=== PATIENT | male | born 1970 | race Caucasian/White ===

== ENCOUNTER 2019-05-11 18:07 | Emergency (ER) | payer BC, OTHER ==
[2019-05-11 18:18] VITALS: BP 151/100
[2019-05-11] MEDS ORDERED: Acetaminophen TAB* 325 MG PO ONE (18:38)
--- NOTE | 2019-05-11 18:41 | ED ---
Upper Extremity Pain - HPI Summary HPI Summary: 48 yr old male with right shoulder pain. Onset 4 hours ago. He broke his fall with his hands close to his sides. He has pain in the anterior and lateral shoulder, and limited movement in overhead direction now. No fever, swelling. No other complaints. The patient was out hiking and broke his fall during the hike. He also has right shoulder surgery back in the mid 1980s - History of Current Complaint Chief Complaint: UCUpperExtremity Stated Complaint: RIGHT SHOULDER INJURY Time Seen by Provider: 05/11/19 18:14 - Allergies/Home Medications Allergies/Adverse Reactions: Allergies Allergy/AdvReac Type Severity Reaction Status Date / Time No Known Allergies Allergy Verified 05/11/19 18:18 Home Medications: Home Medications Acetaminophen [Tylenol Extra Strength] 1,000 mg PO DAILY 05/11/19 [History Confirmed 05/11/19] Ibuprofen TAB* [Motrin TAB* 800 MG] 800 mg PO ONCE 05/11/19 [History Confirmed 05/11/19] Rivaroxaban TAB(*) [Xarelto 10 mg (*)] 10 mg PO DAILY 05/11/19 [History Confirmed 05/11/19] Sildenafil Citrate [Viagra] 100 mg PO DAILY 05/11/19 [History Confirmed 05/11/19 ] PMH/Surg Hx/FS Hx/Imm Hx - Surgical History Surgery Procedure, Year, and Place: right shoulder separation w/ pins; left knee arthroscopy Infectious Disease History: No Infectious Disease History: Denies: History Other Infectious Disease, Traveled Outside the [place] in Last 30 Days - Family History Known Family History: Positive: None - Social History Occupation: Employed Full-time Alcohol Use: Weekly Substance Use Type: Reports: None Smoking Status (MU): Never Smoked Tobacco Review of Systems Constitutional: Negative Positive: Other - shoulder pain All Other Systems Reviewed And Are Negative: Yes Physical Exam Triage Information Reviewed: Yes Vital Signs On Initial Exam: Initial Vitals Temp Pulse Resp BP Pulse Ox 100.1 F 105 12 151/100 98 05/11/19 18:15 05/11/19 18:15 05/11/19 18:15 05/11/19 18:15 05/11/19 18:15 Vital Signs Reviewed: Yes Appearance: Positive: Well-Appearing, No Pain Distress Skin: Positive: Warm, Skin Color Reflects Adequate Perfusion Head/Face: Positive: Normal Head/Face Inspection Eyes: Positive: EOMI, LUCRECIA ENT: Positive: Normal ENT inspection Neck: Positive: Supple, Nontender Respiratory/Lung Sounds: Positive: Other - normal effort Cardiovascular: Positive: Pulses are Symmetrical in both Upper and Lower Extremities Abdomen Description: Negative: Distended Musculoskeletal: Positive: Other - right shoulder without gross deformity. He has limited anterior flexion, and abduction right shoulder with active effort. He has about 120 degrees of abduction passive, and 120 degrees forward flexion. No bruise, no soft tissue swelling. Neurological: Positive: Sensory/Motor Intact, Alert, Oriented to Person Place, Time, CN Intact II-III, Normal Gait, Speech Normal Psychiatric: Positive: Normal Diagnostics - Vital Signs Vital Signs Temp Pulse Resp BP Pulse Ox 05/11/19 18:15 100.1 F 105 12 151/100 98 - Laboratory Lab Statement: Any lab studies that have been ordered have been reviewed, and results considered in the medical decision making process. - Radiology right shoulder Radiology Interpretation Completed By: ED Physician - JILL. possible old fx, DJD. Course/Dx - Course Course Of Treatment: 48 yr old male with acute pain after breaking his fall with right arm, and has right shoulder pain with limited overhead ROM. Refer to Dr Dasilva for follow up. - Diagnoses Provider Diagnoses: Unspecified injury of muscle(s) and tendon(s) of the rotator cuff of right shoulder, initial encounter, Hypertension Discharge - Sign-Out/Discharge Documenting (check all that apply): Patient Departure All imaging exams completed and their final reports reviewed: No - Discharge Plan Condition: Good Disposition: HOME Patient Education Materials: Hypertension (ED), Rotator Cuff Injury (ED) Referrals: Mag Angel MD [Primary Care Provider] - 2 Days Gaurav Dasilva MD [Medical Doctor] - 2 Days - Billing Disposition and Condition Condition: GOOD Disposition: Home
--- NOTE | 2019-05-12 10:34 | UC ---
- Progress Note Progress Note: IMPRESSION: ON THE AXILLARY VIEW THERE IS SUGGESTION OF A FRACTURE FRAGMENT. I attempted to call patient at 10:30 AM no answer left message for him to call please notify him re results and need to follow up with Dr. Dasilva Course/Dx - Diagnoses Provider Diagnoses: Unspecified injury of muscle(s) and tendon(s) of the rotator cuff of right shoulder, initial encounter, Hypertension Discharge - Sign-Out/Discharge Documenting (check all that apply): Post-Discharge Follow Up All imaging exams completed and their final reports reviewed: Yes - Discharge Plan Condition: Good Disposition: HOME Patient Education Materials: Rotator Cuff Injury (ED), Hypertension (ED) Referrals: Gaurav Dasilva MD [Medical Doctor] - 2 Days Mag Angel MD [Primary Care Provider] - 2 Days - Billing Disposition and Condition Condition: GOOD Disposition: Home
== END 2019-05-11 19:11 | disposition home or self-care (01) ==
LOC: UCCORT 18:07
DX: S46.001A Unspecified injury of muscle(s) and tendon(s) of the rotator cuff of right shoulder, initial encounter (principal); W19.XXXA Unspecified fall, initial encounter; Y93.01 Activity, walking, marching and hiking; Y92.9 Unspecified place or not applicable; I10 Essential (primary) hypertension
CPT/HCPCS: 99202; G0463

== ENCOUNTER → 2019-06-18 07:24 | Day surgery (SDC) | payer BC ==
[~2019-06-18 07:24] MED LIST: Buffered Lidocaine 1% SYRIN* 1 ML/SYRINGE INTRADERM ONE; Bupivacaine 0.5% W/EPI SDV* 10 ML VIAL INJ ONE; Dexamethasone IV* 4 MG/ML 1 ML (4 MG) IV SLOW PU ONE; Dexamethasone IV* 4 MG/ML 1 ML (4 MG) ONE; EPINEPHRINE 1 MG/ML 1 ML VIAL ONE; Famotidine TAB* 20 MG ONE; Famotidine TAB* 20 MG PO ONE; Lactated Ringers 1000 ML Bag* 1,000 ML IV SCH; Lidocaine 1% MPF ** 5 ML VIAL ONE; Lidocaine 2% PF * 5 ML VIAL ONE; Midazolam* 1 MG/ML 2 ML VIAL (2 MG) ONE; Propofol* 10 MG/ML 20 ML BTL ONE; ceFAZolin 2 GM in NS PREMIX(*) 2 GM/100 ML BAG IVPB ONE; fentaNYL* 50 MCG/ML 2 ML VIAL (100 MCG VIAL) ONE
[2019-06-18 15:39] VITALS: BP 131/96
--- NOTE | 2019-06-19 23:06 | OP ---
OPERATIVE REPORT: DATE OF OPERATION: 06/18/19 DATE OF : 66 SURGEON: Randy Cano MD BUILDINGS PAINTER: LOKESH Sheehan A physician cement tester assistant was required for the length of procedure for assistance with patient positionin g, instrumentation, and closure. ANESTHESIOLOGIST: Dr. Ravin Heath. ANESTHESIA: General anesthesia, regional interscalene block anesthesia. PRE-OP DIAGNOSES: 1. Right shoulder rotator cuff tendon tear, full thickness supraspinatus, possible infraspinatus, po ssible subscapularis. 2. Right shoulder subacromial impingement. 3. Right shoulder acromioclavicular joint osteoarthritis with a distant past history of acromioclavi cular joint separation treated operatively. 4. Possible right shoulder long head biceps tendon rupture. 5. Right shoulder fracture fragments, small, anterior humerus, acute versus chronic, adjacent to sub scapularis. POST-OP DIAGNOSES: 1. Right shoulder rotator cuff tendon tear, full thickness, supraspinatus, infraspinatus, subscapula ris, massive, 3-tendon, retracted. 2. Right shoulder subacromial impingement. 3. Right shoulder acromioclavicular joint osteoarthritis. 4. Right shoulder spontaneous long head biceps tendon rupture with a stump of long head biceps tendo n still present and significantly frayed intraarticular right shoulder. 5. Right shoulder fracture fragments, small, anterior humerus, acute versus chronic, adjacent to sub scapularis. OPERATIVE PROCEDURE: 1. Right shoulder arthroscopic rotator cuff tendon repair, massive, retracted, full thickness, 3-ten don, supraspinatus, infraspinatus, subscapularis. 2. Modifier 22 for an unusual or complex procedure. This was a 3-tendon injury with very retracted tissues that required much debridement and releasing to mobilize. I used 7 anchors, with a 2-anchor subscapularis tendon repair and a 5- anchor, double-row supraspinatus and infraspinatus rotator cuff repair. 3. Right shoulder arthroscopic subacromial decompression. 4. Right shoulder arthroscopic distal clavicle resection. 5. Right shoulder arthroscopic limited debridement including debridement of long head biceps tendon stump as well as debridement of part of the bony fragment about the anterior shoulder. ANTIBIOTICS: Ancef 2 g IV. IV FLUIDS: 800 cc crystalloid. LXOH-HC-SYND TIME: 175 minutes. ARTHROSCOPY FLUID UTILIZED: 21 bags each with 3 L for a total 63 L. SPECIMEN: None. IMPLANTS: Mitek Tate and Tate 4.5 mm [place] suture anchors x2. These were doubly lodable sutur es. One anchor I used suture from and the other anchor I used 2 sutures from. Those were for the wilburn bscapularis. I then used Mitek [place] 5.5 mm suture anchors x3, which each contained 1 tape and 1 sut ure. I then used Mitek [place] 5.5 mm knotless suture anchors x2 for a total of 7 anchors. COMPLICATIONS: None. ESTIMATED BLOOD LOSS: Minimal. INDICATIONS FOR PROCEDURE: The patient is a 48-year-old man, right hand dominant, works at the [employer], who injured himself on 05/11/19 just over 1 month prior to surgery. He developed significan t pain about the right shoulder. The patient admitted that before he had the fall, he has many years of some nagging, aching, low leve l pain in the right shoulder. This would occasionally cause him to sit out certain workouts in the g ym and take it easy. The patient also had a high-grade AC joint injury in 1986, treated with pins an d surgery that were subsequently surgically removed. The patient saw Dr. Dasilva first and was eventually referred to my clinic. 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 MRI showed a full thickness, full width tear of supraspinatus. It was not clear how far retracted th e tendon was. It was either retracted to the apex of the humeral head or to the level of the glenoid . There was much inflammation present and I was not able to tell the extent of the injury to the inf raspinatus and subscapularis. Radiologist agreed with that. Much hypertrophic change about the AC j oint and then lateral acromial spur. There was a clear fracture fragment about the anterior shoulder . I could not tell if the subscapularis insertion attached to this where the fragment was deep to th e subscapularis. I could also not tell if this was an acute or a chronic fracture fragment. The rad iologist thought that it was a chronic fracture fragment. We discussed surgery. I discussed technical aspects of the surgery. I told the patient it could be a smaller or larger case based on intraoperative findings. We spoke about long recovery process and limitations. Discussed risks and potential complications of surgery with the patient. DESCRIPTION OF PROCEDURE: In the preoperative holding, the patient signed a written consent. Operat teresa extremity was marked in the preoperative holding. The patient underwent interscalene regional ne rve block by Dr. Heath in preoperative holding. The patient was taken back to the operating room and placed supine on the operating table. Sedated a nd intubated. Converted into the lateral decubitus position. Beanbag hardened. Axillary roll. All bony prominence s padded. 15 pounds of longitudinal retraction in the appropriate amount of forward flexion and abdu ction. Right shoulder was prepped and draped. Surgical time-out performed. I placed 30 cc of normal saline into the glenohumeral joint from posterior. I made an arthroscopy portal about the posterior glenohumeral joint. I started my diagnostic arthros copy. No significant articular cartilage injury. Clearly full thickness rotator cuff tendon injury of supr aspinatus and infraspinatus. There was a severely frayed long head biceps tendon stump present. The re was clearly a full thickness subscapularis tendon tear. I established an anterior glenohumeral joint portal under direct visualization. Using arthroscopic sh aver to debride the long head biceps tendon to its origin. This allowed better visualization of the j oint. Visualized the subscapularis tendon. I used an arthroscopic shaver to debride some rotator cuff inte rval tissue to improve visualization. I next made an anterolateral shoulder arthroscopy portal. I did this to determine the mobility of th e subscapularis full thickness tear as well as to assess the bony fragment visible. The bony fragmen t was deep to the subscapularis tendon. It was far medial to the humerus. It did not clearly appear that subscapularis tendon insertion fibers inserted on it. It seemed medial to the insertion of the these tendon fibers. I was able to visualize down the bare footprint of the subscapularis on the an terior humeral head. I thought that distal to that footprint, there may have been an origin site for that bony fragment but this was not clear. I made another anterior portal. I next performed a subscapularis tendon repair. I did so using some elements of a glenohumeral and s ubacromial repair technique. I prepared the footprint with an arthroscopic dameon. I placed 2 anchors , 1 more inferior and 1 more superior. Each were double loaded. I removed one of the 2 sutures from inferior suture anchor. I used a retrograde suture passer to pass my horizontal mattress stitches t hrough the subscapularis tendon. I tied these knots from superior to inferior with the shoulder in a neutral position. This brought subscapularis tendon nicely to bone. I should mention that I debrided the comma tissue connecting the supraspinatus and subscapularis to p erform this repair. I next moved to the subacromial space. Posterior and anterior portals. I established lateral and po sterolateral portals under direct visualization. I next debrided subacromial bursitic tissue using t he arthroscopic shaver and debrided the undersurface of the acromion with an arthroscopic VAPR cauter y device. The supraspinatus and infraspinatus tendons were severely retracted to the level of the gl enoid. This was somewhat surprising as they had not looked that retracted early on when viewing from the joint. I thought that they might be more like half way between the glenoid and the humeral head apex. It was indeed true that these were retracted as far as the glenoid. The supraspinatus was mo re mobile than the infraspinatus and I was able to bring some supraspinatus to its foot print with a rotator cuff grasper. I next performed releases inferiorly and superiorly to these rotator cuff tendons to improve mobiliza tion. I did not perform any interval slides. I first placed traction stitches, one in the supraspinatus and the other in the infraspinatus using e ntry point suture passers and FiberWire #2 suture. I then performed releases using switching stick a nd arthroscopic shaver. This improved the mobility. At this point, I was not especially confident i n the quality of the future repair. I next started my repair of the infraspinatus and supraspinatus tendons. I should note that it was n ot clear what percentage of the infraspinatus was torn, looking at the width from superior to inferio r. A large component of it was torn, however, large width of it was torn. I placed a suture anchor in the infraspinatus footprint after preparing these footprints with an arth roscopic dameon. I placed this anchor through a superolateral portal and the skin. I used an antegrad e suture passer to pass 1 tape and 1 suture from this anchor through the infraspinatus. I noted that the quality of the infraspinatus tendon tissue was quite robust. I was able to bring tendon nicely to bone. It was under some tension, but I like the quality of my stitches. The excellent secondary effect bringing the infraspinatus out to length was it lateralized significan tly the supraspinatus tendon such that the supraspinatus tendon, instead of being only to the level o f the glenoid, was reduced so that it was close to its footprint, at least to the level of the apex o f the humeral head. This made me very happy about the likelihood of this repair being successful and healing and not re-tearing. Perhaps the supraspinatus coming all the way to the apex of the humeral is little bit extreme, but it lateralized the supraspinatus significantly making the repair of the supraspinatus under no tension. I next addressed the supraspinatus. I placed 2 double-loaded suture anchors in the medial aspect of the footprint of the supraspinatus. Using an antegrade suture passer to pass the tape and suture. I passed all these sutures before tying them. I tied them. At this point, the triple anchor medial ro w repair brought tendon excellently to bone. I was very happy with this. I next placed 2 lateral row anchors using tape and suture from the medial row to bolster my repair. The repair was stable with movement of the humerus and with probing. I viewed it from variety of ang les and I was very happy with it. I next pursued my subacromial decompression. Using arthroscopic dameon, I flattened out the anterior a spect of the acromion. The curving to the anterior aspect of the acromion was not significant, but i t was flattened out nicely. I next moved to the AC joint. There was significant soft tissue synovitic tissue about the AC joint. I debrided this with a VAPR and arthroscopic shaver. I then debrided 8 mm at the distal end of the clavicle with an arthroscopic dameon. I next removed instruments and fluid from subacromial space. Skin incisions were closed with [id number] and 12 stitches using nylon 3-0 suture. Xeroform, 4x 4s, ABDs, foam tape. Sling and abduction pillow. The patient was awakened, extubated, and transferr ed to the PACU. DISPOSITION: Wound care instructions provided. The patient will be in a sling for 8 weeks postopera tively given the large massive nature of his retracted tear. He will also not start physical therapy for 8 weeks postoperative. He will take Percocet as needed for pain control. He will follow up wit h me 10 to 14 days postoperatively in clinic. [id number]/[facility] #: [id number]
== END | disposition home or self-care (01) ==
LOC: OR 07:24
PROVIDERS: ATTEND Orthopaedic Surgery
DX: S46.011A Strain of muscle(s) and tendon(s) of the rotator cuff of right shoulder, initial encounter (principal); M75.41 Impingement syndrome of right shoulder; M19.011 Primary osteoarthritis, right shoulder; S46.111A Strain of muscle, fascia and tendon of long head of biceps, right arm, initial encounter; W19.XXXA Unspecified fall, initial encounter; Y93.01 Activity, walking, marching and hiking; Y92.9 Unspecified place or not applicable; G89.18 Other acute postprocedural pain; Z86.718 Personal history of other venous thrombosis and embolism; Z79.01 Long term (current) use of anticoagulants; Z86.711 Personal history of pulmonary embolism; I73.9 Peripheral vascular disease, unspecified; E78.5 Hyperlipidemia, unspecified; Z87.891 Personal history of nicotine dependence; F41.8 Other specified anxiety disorders; D68.62 Lupus anticoagulant syndrome
CPT/HCPCS: A9270-GY; C1713; J0690; J1100; J2250; J2704; J3010